=== PATIENT | female | born 1960 | race Caucasian/White ===

== ENCOUNTER 2022-05-18 13:11 | Emergency (ER) | payer MEDICARE, MEDICAID ==
[~2022-05-18] VITALS: Ht 175.3 cm; Wt 84.1 kg
[~2022-05-18 13:11] MED LIST: ALBU6.7H14 INH; FLUT1DIS4 INH; HYDR-3965 PO; HYDR25TA4 PO; LEVO175T38 PO; NICO-731 TP; PENI500T2 PO; PROC-8 PO
[2022-05-18 13:23] VITALS: BP 120/87
== END 2022-05-18 19:30 | disposition left against medical advice (07) ==
LOC: ER 13:11
DX: R41.82 Altered mental status, unspecified (principal); Z53.21 Procedure and treatment not carried out due to patient leaving prior to being seen by health care provider
CPT/HCPCS: 93005; 99281